=== PATIENT | male | born 1955 ===

== ENCOUNTER 2018-07-11 11:18 | Emergency (ER) | payer BC ==
[~2018-07-11 11:18] MED LIST: ATOR40TA24 PO; BUDE3CAP6 PO; CAR6.25 PO; LEVO75TA73 PO; LISI-362 PO; MESA1POW PO; TAMS0.4C70 PO
[2018-07-11] MEDS ORDERED: HYDR-4309 PO (11:23)
--- NOTE | 2018-07-11 11:30 | ER Report ---
History and Physical Time Seen By MD: 11:30 Hx. of Stated Complaint: URINARY RETENTION HPI/ROS CHIEF COMPLAINT: Inability to urinate, pelvic pain HISTORY OF PRESENT ILLNESS: 62-year-old male patient presents to emergency room with complaint of inability to urinate, pelvic pain. Patient states this been g oing on for the past 24 hours. He states that he had a TURP done this past week. He states that he had his catheter removed yesterday. He states that he been doing fine, the last night he states he started having increased pain and pain with urination. He states that he felt like he had to get up several times a night to urinate. When he did he was able to urinate just a small amount. Patient states that seemed to help with the urinary urgency and he was able to go back to sleep. States he did get a few hours later have the same problem. He states that stays with urinate at all. He did go to an urgent care and was referred here to the emergency room. Allergies: Coded Allergies: No Known Drug Allergies (Unverified , 08/26/17) Home Meds Reported Medications Hydrocodone Bit/Acetaminophen (NORCO 5-325 TABLET) 1 Each Tablet, 1 EACH PO Q4- 6H, TAB 07/11/18 Budesonide (BUDESONIDE EC) 3 Mg Capdr...er, 3 MG PO DAILY 08/26/17 Mesalamine (MESALAMINE) 1 Gm Powder, 800 MG PO BID 08/26/17 Carvedilol (CARVEDILOL) 6.25 Mg Tab, 6.25 MG PO BID, TAB 08/26/17 Levothyroxine Sodium (LEVOTHYROXINE SODIUM) 75 Mcg Tablet, 80 MCG PO QDAY, TAB 08/26/17 Atorvastatin Calcium (LIPITOR) 40 Mg Tablet, 1 TAB PO QDAY, TAB 08/26/17 Lisinopril (LISINOPRIL) 10 Mg Tablet, 10 MG PO QDAY, TAB 08/26/17 Discontinued Reported Medications Tamsulosin Hcl (TAMSULOSIN HCL) 0.4 Mg Cap.er.24h, 0.4 MG PO BID, CAP 08/26/17 Past Medical/Surgical History Patient has a past medical history of enlarged heart, hypertension, pneumonia, reflux, enlarged prostate, arthritis, hypothyroidism, basal cell cancer, alcohol use. Patient has surgical history of a right rotator cuff surgery, basal cell cancer removal. Hx Smoking: No Exposure to Second Hand Smoke?: No Hx Substance Use Disorder: No Hx Alcohol Use: Yes Constitutional Vital Sign - Last 24 Hours 07/11/18 07/11/18 11:22 13:00 Temp 98.2 Pulse 93 74 Resp 20 16 B/P (MAP) 104/74 100/64 (76) Pulse Ox 91 94 O2 Delivery Room Air Room Air Physical Exam General appearance: Alert no distress. Respiratory: Chest is non tender, lungs are clear to auscultation. Cardiac: Regular rate and rhythm. : Patient did have some tenderness to the abdomen over the bladder. Catheter was placed without difficulty and patient had bloody urine out. DIFFERENTIAL DIAGNOSIS: After history and physical exam differential diagnosis was considered for urinary obstruction, bleeding secondary to TURP procedure, p ost residual pain. Medical Decision Making ED Course/Re-evaluation ED Course Patient was admitted exam room, history and physical were obtained. Differential diagnoses were considered. On exam lungs are clear, heart is regular, abdomen was soft and nontender. A catheter was placed. We were able to get out significant amounts of bloody urine. We look the patient sit for approximately 30 minutes after catheter was placed make sure that his pain was improved. Patient did have a bladder scan performed which showed no urine. I discussed with the patient we will go ahead and leave the catheter in and have him follow- up with his urologist. He is to call on Friday to make an appointment. Patient had tolerated the catheter well. We will have him continue take his hydrocodone for pain. Although anticipate that his pain will be improved with catheter placement. Patient verbalized understanding and agreement with plan. Decision to Disposition Date: Jul 11, 2018 Decision to Disposition Time: 12:47 Depart Departure Latest Vital Signs Vital Signs Date Time Temp Pulse Resp B/P (MAP) Pulse Ox O2 Delivery O2 Flow Rate FiO2 07/11/18 13:00 74 16 100/64 (76) 94 Room Air 07/11/18 11:22 98.2 Impression: Primary Impression: Postoperative urinary retention Condition: Improved Disposition: HOME OR SELF-CARE Patient Instructions: Urinary Retention in Men (ED) Additional Instructions: Leave catheter in place until you see urology. Call on Friday to make an appointment to get that removed. Let them know that you had an inability to urinate and so we had to pace a catheter. Return to the ER if you are unable to get out any urine. Continue with your current medications. KELLY ST Jul 11, 2018 11:30
[2018-07-11 13:00] VITALS: BP 100/64
== END 2018-07-11 13:00 | disposition home or self-care (01) ==
LOC: ER 11:23
DX: R33.8 Other retention of urine (principal)
CPT/HCPCS: 99283